=== PATIENT | male | born 2000 ===

== ENCOUNTER 2018-12-07 17:05 | Emergency (ER) | payer OTHER ==
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
[2018-12-07] MEDS ORDERED: Lidocaine 1% INJ* 10 MG/ML 30 ML SDV INJ ONE (17:27)
[2018-12-07] MEDS ORDERED: Bacitracin OINTMENT* 0.5% 0.5 oz TUBE TOPICAL ONE (18:28)
[2018-12-07 18:38] VITALS: BP 145/80
== END 2018-12-07 18:37 | disposition home or self-care (01) ==
LOC: ED 17:05
DX: S01.311A Laceration without foreign body of right ear, initial encounter (principal); S01.81XA Laceration without foreign body of other part of head, initial encounter; Y04.0XXA Assault by unarmed brawl or fight, initial encounter; Y92.149 Unspecified place in prison as the place of occurrence of the external cause; Z91.013 Allergy to seafood
CPT/HCPCS: 12011; 99282